=== PATIENT | female | born 1985 | race African-American/Black ===

== ENCOUNTER 2020-03-09 18:40 | Emergency (ER) | payer OTHER, SELFPAY ==
[2020-03-09 19:48] VITALS: BP 149/66; PULSE 103; RESP 14; TEMP 36.6; O2SAT 98
[2020-03-09 20:28] VITALS: BP 136/64; PULSE 106; RESP 16; TEMP 35.4; O2SAT 99; BMI 30.7
--- NOTE | 2020-03-09 21:00 | PC.NURSE ---
Pt ambulating from the waiting room into room 8 with a healy/steady gait. Pt reports lower pelvic pain mid lower back pain x 1 week. Pt reports dysuria and urinary frequency, denies discharge/chance of STIs. Pt denies N/V/D, reports poor PO intake, denies appetite but states she has been drinking fluids. Pt reports last UTI 14 years ago, denies history of kidney stones. IV established, labs and urine obtained and sent. Pt resting in bed awaiting primary MD navarro. Continue to monitor.
--- NOTE | 2020-03-09 21:07 | ED.FEMALEGU ---
HPI - Female Genitourinary General Chief complaint: Urogenital-Female Stated complaint: abdominal pain Time Seen by Provider: 03/09/20 21:07 Source: patient Mode of arrival: ambulatory Limitations: no limitations History of Present Illness HPI Narrative: patient having urinary discomfort for last 1 week complaining of bilateral flank pain for last 3 days nausea present no vomiting no abdominal pain no fever, chills+ Related Data Previous Rx's Medication Instructions Recorded ciprofloxacin HCl [Cipro] 500 mg PO BID #14 tab 03/09/20 phenazopyridine [Pyridium] 200 mg PO TID PRN #6 tab 03/09/20 Allergies Allergy/AdvReac Type Severity Reaction Status Date / Time cefazolin [From [facility]] Allergy Hives Verified 03/09/20 21:14 Review of Systems Review of Systems: Constitutional : No Weight loss, No Fever, +Chills ENT/Mouth : No sore throat, No Rhinorrhea Eyes: No Eye Pain, No Swelling Cardiovascular : No Chest Pain, no palpitations Respiratory : No Cough, No Sputum, no shortness of breath Gastrointestinal : ++ Nausea, No Vomiting, No Diarrhea, No abdominal Pain, no black stools Genitourinary : + Dysuria,+ Urinary Frequency Musculoskeletal : No joint pain, No Myalgias, No Joint Swelling Skin : No Skin Lesions, No rash Neuro : No Weakness, No Numbness, No Dizziness, No Headache Psych : No Anxiety/Panic, No Depression Heme/Lymph: No Bruising, No Lymphadenopathy Endocrine : No Polyuria, No Polydipsia All other systems reviewed and are negative [facility] Past Medical History Medical History (Updated 03/09/20 @ 22:14 by Jacob Novak MD) Anemia Social History Social History Advance Directives: No Advance Directives Information Provided: No Physical Exam Vital Signs: Vital Signs: Last Vital Signs Temp 98.4 F 03/09/20 22:37 Pulse 89 03/09/20 22:37 Resp 16 03/09/20 22:37 BP 119/64 03/09/20 22:37 Pulse Ox 99 03/09/20 20:28 Body Mass Index 30.7 Appearance: Alert. Oriented X3. No acute distress. Eyes: Pupils equal, round and reactive to light. ENT: Pharynx normal. Neck: Normal inspection. Neck supple. CVS: Normal heart rate and rhythm. Pulses normal. Respiratory: No respiratory distress. Breath sounds normal. Abdomen: Soft and nontender. Bowel sounds are present, no mass palpable, R CVA tenderness + Skin: Skin warm and dry. Normal skin color. Normal skin turgor. Extremities: No lower extremity edema. Neuro: Oriented X 3. No motor deficit. No sensory deficit. Course Course Course Narrative: PATIENT WITH MILD UTI HAD NAUSEA EARLIER BUT VOMITED IN THE ER AFTER TAKING THE MEDICATION. WILL GIVE HER IV ROCEPHIN ZOFRAN WAS ALSO GIVEN PATIENT FEELING BETTER NOW MDM - Female Genitourinary Lab Data Result diagrams: 03/09/20 20:59 03/09/20 20:59 Labs: Lab Results 03/09/20 03/09/20 03/09/20 Range/Units 20:59 20:59 20:59 WBC 10.5 (4.8-10.8) X10*3/uL RBC 4.34 (4.20-5.50) X10*6/uL Hgb 7.5 L (12.0-16.0) g/dl Hct 27.8 L (37-47) % MCV 64.1 L (80-98) fL MCH 17.3 L (27.0-33.0) pg MCHC 27.0 L (31.0-35.0) g/dl RDW 21.5 H (11.0-16.0) % Plt Count 345 (160-400) X10*3/uL MPV Not Reportable Immature Gran % (Auto) 0.3 (0.0-0.4) % Neut % (Auto) 86.4 H (45-73) % Lymph % (Auto) 6.4 L (20-40) % [place] % (Auto) 6.4 (2-11) % Eos % (Auto) 0.2 (0-4) % Baso % (Auto) 0.3 (0-2) % Lymph # (Auto) 0.7 L (1.2-4.9) X10*3/uL [place] # (Auto) 0.7 (0.1-1.2) X10*3/uL Eos # (Auto) 0.0 (0.0-0.4) X10*3/uL Baso # (Auto) 0.0 (0.0-0.2) X10*3/uL Abs Immat Gran (auto) 0.03 (0.00-0.03) X10*3/uL Absolute Neuts (auto) 9.1 H (2.0-8.3) X10*3/uL Absolute Nucleated RBC 0.000 (0.0-0.012) X10*3/uL Nucleated RBC % (auto) 0.0 (0.0-0.2) /100WBC Smear Tech's Comments VERIFIED Hold Blue Top SEE NOTE Sodium 138 (135-145) mmol/L Potassium 3.8 (3.3-5.1) mmol/l Chloride 105 (96-108) mmol/L Carbon Dioxide 21 L (22-29) mmol/L Anion Gap 16 (12-20) BUN 6 L (9-16) mg/dL Creatinine 0.76 (0.5-1.4) mg/dL Estim Creat Clear Calc 109.5 Estimated GFR > 60 Random Glucose 121 H (60-115) mg/dL Uric Acid 3.8 (2.4-5.7) mg/dL Calcium 8.8 (8.4-10.2) mg/dL Total Bilirubin 0.3 (0.0-1.0) mg/dL AST 17 (5-31) U/L ALT 13 (0-31) U/L Alkaline Phosphatase 81 (39-117) U/L Total Protein 8.0 (6.5-8.0) g/dL Albumin 4.6 (3.5-5.0) g/dL Urine Color Urine Appearance Urine pH (5.0-8.0) Ur Specific [place] (1.005-1.025) Urine Protein (NEG-TRACE) MG/DL Urine Glucose (UA) (NEG) MG/DL Urine Ketones (NEG) MG/DL Urine Blood (NEG) Urine Nitrite (NEG) Ur Leukocyte Esterase (NEG) Urine RBC (0) /HPF Urine WBC (0-4) /HPF Ur Squamous Epith Cells /LPF Urine Bacteria /LPF Urine Test (NEGATIVE) 03/09/20 Range/Units 20:59 WBC (4.8-10.8) X10*3/uL RBC (4.20-5.50) X10*6/uL Hgb (12.0-16.0) g/dl Hct (37-47) % MCV (80-98) fL MCH (27.0-33.0) pg MCHC (31.0-35.0) g/dl RDW (11.0-16.0) % Plt Count (160-400) X10*3/uL MPV Immature Gran % (Auto) (0.0-0.4) % Neut % (Auto) (45-73) % Lymph % (Auto) (20-40) % [place] % (Auto) (2-11) % Eos % (Auto) (0-4) % Baso % (Auto) (0-2) % Lymph # (Auto) (1.2-4.9) X10*3/uL [place] # (Auto) (0.1-1.2) X10*3/uL Eos # (Auto) (0.0-0.4) X10*3/uL Baso # (Auto) (0.0-0.2) X10*3/uL Abs Immat Gran (auto) (0.00-0.03) X10*3/uL Absolute Neuts (auto) (2.0-8.3) X10*3/uL Absolute Nucleated RBC (0.0-0.012) X10*3/uL Nucleated RBC % (auto) (0.0-0.2) /100WBC Smear Tech's Comments Hold Blue Top Sodium (135-145) mmol/L Potassium (3.3-5.1) mmol/l Chloride (96-108) mmol/L Carbon Dioxide (22-29) mmol/L Anion Gap (12-20) BUN (9-16) mg/dL Creatinine (0.5-1.4) mg/dL Estim Creat Clear Calc Estimated GFR Random Glucose (60-115) mg/dL Uric Acid (2.4-5.7) mg/dL Calcium (8.4-10.2) mg/dL Total Bilirubin (0.0-1.0) mg/dL AST (5-31) U/L ALT (0-31) U/L Alkaline Phosphatase (39-117) U/L Total Protein (6.5-8.0) g/dL Albumin (3.5-5.0) g/dL Urine Color YELLOW Urine Appearance CLOUDY Urine pH 5.5 (5.0-8.0) Ur Specific [place] 1.020 (1.005-1.025) Urine Protein 1+ H (NEG-TRACE) MG/DL Urine Glucose (UA) NEG (NEG) MG/DL Urine Ketones NEG (NEG) MG/DL Urine Blood 1+ H (NEG) Urine Nitrite NEG (NEG) Ur Leukocyte Esterase 3+ H (NEG) Urine RBC 1-4 (0) /HPF Urine WBC 30-49 H (0-4) /HPF Ur Squamous Epith Cells 2+ /LPF Urine Bacteria 3+ /LPF Urine Test NEGATIVE (NEGATIVE) Discharge Plan Discharge Clinical Impression: Urinary tract infection Patient Disposition: Home, Self-Care Instructions: Urinary Tract Infection in Women (ED) Additional Instructions: DRINK PLENTY OF FLUIDS TAKE ANTIBIOTIC PRESCRIBED. REPORT TO THE ER/PCP INCREASED VOMITING/FEVER/ABDOMINAL PAIN Prescriptions: New ciprofloxacin HCl [Cipro] 500 mg tablet 500 mg PO BID Qty: 14 RF: 0 phenazopyridine [Pyridium] 200 mg tablet 200 mg PO TID PRN (Reason: pain) Qty: 6 RF: 0 Interventions: ED Discharge Assessment Last Done: 03/09/20 22:52 Discharge Date/Time: 03/09/20 22:53
[2020-03-09 21:14] LABS: Glucose Urine UA NEG (NEG); Leukocyte Esterase Urine 3+ (NEG); Nitrite Urine NEG (NEG); PH 5.5 (5.0-8.0); Urine Blood 1+ (NEG); Urine Ketones NEG (NEG); Urine Protein 1+ MG/DL (NEG-TRACE)
--- NOTE | 2020-03-09 21:15 | PC.NURSE ---
at bedside for primary eval.
[2020-03-09 21:16] LABS: Appearance Urine CLOUDY; Color Urine YELLOW; Eosinophils Percent Auto 0.2 % (0-4); Hemoglobin 7.5 g/dl (12.0-16.0); Imm Gran Abs Auto 0.03 X10*3/uL (0.00-0.03); Imm Gran Pct Auto 0.3 % (0.0-0.4); MANUAL DIFF FLAG SCAN; Mean Corpuscular Hemoglobin 17.3 pg (27.0-33.0); Red Blood Count 4.34 X10*6/uL (4.20-5.50); SCAN SMEAR FLAG 1
[2020-03-09 21:17] LABS: Basophils Percent Auto 0.3 % (0-2); Hematocrit 27.8 % (37-47); Lymphocytes Absolute Auto 0.7 X10*3/uL (1.2-4.9); Lymphocytes Percent Auto 6.4 % (20-40); Monocytes Absolute Auto 0.7 X10*3/uL (0.1-1.2); Monocytes Percent Auto 6.4 % (2-11); Neutrophils Absolute Auto 9.1 X10*3/uL (2.0-8.3); Neutrophils Percent Auto 86.4 % (45-73); Platelet Count 345 X10*3/uL (160-400); Red Cell Distribution Width 21.5 % (11.0-16.0); UPreg QC Valid YES; Urine Pregnancy NEGATIVE (NEGATIVE); White Blood Count 10.5 X10*3/uL (4.8-10.8)
[2020-03-09 21:27] LABS: Bacteria Urine 3+ /LPF; Squamous Epithelial Cell Urine 2+ /LPF; WBC Urine 30-49 /HPF (0-4)
[2020-03-09] MEDS: Phenazopyridine HCL 200 MG TABLET PO (21:31)
[2020-03-09] MEDS: Ibuprofen 600 MG TABLET PO (21:31)
[2020-03-09] MEDS: levoFLOXacin 500 MG TABLET PO (21:31)
--- NOTE | 2020-03-09 21:32 | PC.NURSE ---
Pt medicated per MAR. Awaiting lab results. Continue to monitor.
[2020-03-09 21:37] LABS: Mean Corpuscular Volume 64.1 fL (80-98); PLT ABN DIST 1
[2020-03-09 21:38] LABS: SLIDE REVIEW VERIFIED
[2020-03-09 21:41] LABS: Alanine Aminotransferase 13 U/L (0-31); Albumin Level 4.6 g/dL (3.5-5.0); Alkaline Phosphatase 81 U/L (39-117); Anion Gap 16 (12-20); Aspartate Amino Transferase 17 U/L (5-31); Bilirubin Total 0.3 mg/dL (0.0-1.0); Blood Urea Nitrogen 6 mg/dL (9-16); Calcium 8.8 mg/dL (8.4-10.2); Carbon Dioxide 21 mmol/L (22-29); Chloride 105 mmol/L (96-108); Creatinine Clr Calc Pharmacy 109.5; Estimated Glomerular Filt Rate > 60; Glucose Random 121 mg/dL (60-115); Potassium 3.8 mmol/l (3.3-5.1); Sodium 138 mmol/L (135-145)
--- NOTE | 2020-03-09 21:59 | PC.NURSE ---
Pt found sitting upright in bed holding an emesis bag. Pt reports 3 episodes of vomiting approx 10 minutes after administration of medications. Pt medicated with Zofran, denies nausea at present time. aware.
[2020-03-09] MEDS: cefTRIAXone sodium 1 GM in 0.9 % Sodium Chloride 50 ML IV (22:11)
--- NOTE | 2020-03-09 22:12 | PC.NURSE ---
IV ABX hung per MAY.
[2020-03-09 22:24] LABS: Uric Acid 3.8 mg/dL (2.4-5.7)
[2020-03-09 22:37] VITALS: BP 119/64; PULSE 89; RESP 16; TEMP 36.9
== END 2020-03-09 22:53 | disposition home or self-care (01) ==
PROVIDERS: Emergency Provider Internal Medicine
DX: N39.0 Urinary tract infection, site not specified (principal); R30.0 Dysuria; Z79.899 Other long term (current) drug therapy
CPT/HCPCS: 36415; 80053; 81001; 81025; 84550; 85025; 87086; 87088; 87186; 96365; 99284; J0696

== ENCOUNTER 2020-03-18 12:24 | Outpatient (REF) | payer OTHER, SELFPAY | END 2020-03-18 12:25 | disposition home or self-care (01) | LOC: HO.LAB 12:24 | PROVIDERS: Visit Provider Internal Medicine | DX: Z20.822 Contact with and (suspected) exposure to COVID-19 (principal) | CPT/HCPCS: 36415; C9803; U0003 ==

== ENCOUNTER → 2022-03-20 13:44 | Outpatient (BNVA) | payer OTHER, SELFPAY | PROVIDERS: Visit Provider Physician Assistant Medical | DX: S61.231A Puncture wound without foreign body of left index finger without damage to nail, initial encounter (principal); W31.89XA Contact with other specified machinery, initial encounter | CPT/HCPCS: 73140; 99203 ==

== ENCOUNTER 2022-05-22 15:55 | Emergency (ER) | payer MEDICAID, SELFPAY ==
--- NOTE | 2022-05-22 16:06 | ED.GENADULT ---
HPI - General Adult General Chief complaint: Ear Problems <CLEMENCIA Lorenzo Last Filed: 05/22/22 16:08> Stated complaint: Earache <CLEMENCIA Lorenzo Last Filed: 05/22/22 16:08> Time Seen by Provider: 05/22/22 17:46 <CLEMENCIA Lorenzo Last Filed: 05/22/22 16:08> Source: patient <CLEMENCIA Aguila Last Filed: 05/22/22 18:00> Mode of arrival: ambulatory <CLEMENCIA Aguila Last Filed: 05/22/22 18:00> Limitations: no limitations <CLEMENCIA Aguila Last Filed: 05/22/22 18:00> History of Present Illness HPI narrative: 36-year-old female presenting to the ER with complaints of right ear pain that is radiating to her throat with generalized fatigue/malaise for the past 3 days. She denies any fevers, chills, dizziness, headaches, neck pain/stiffness, trouble swallowing or breathing, chest pain or shortness of breath, dyspnea on exertion, orthopnea palpitations paresthesias, rashes, recent falls or trauma, recent travel, recent swimming, decreased hearing, drainage from the ear, nausea/vomiting/diarrhea or any other symptoms complaints or concerns at this time. <CLEMENCIA Aguila Last Filed: 05/22/22 18:00> MD complaint: Right ear pain radiating to throat <CLEMENCIA Aguila Last Filed: 05/22/22 18:00> Onset (ago): day(s) (3) <CLEMENCIA Aguila Last Filed: 05/22/22 18:00> Related Data Home medications: Previous Rx's Medication Instructions Recorded ciprofloxacin HCl 500 mg tablet 500 mg PO BID #14 tabs 03/09/20 (Cipro) phenazopyridine 200 mg tablet 200 mg PO TID PRN pain 6 doses #6 03/09/20 (Pyridium) tabs metaxalone 800 mg tablet 800 mg PO TID PRN muscle pain #20 05/22/22 tabs naproxen 500 mg tablet 500 mg PO BID PRN pain #14 tabs 05/22/22 <CLEMENCIA Lorenzo Filed: 05/22/22 16:08> Allergies/adverse reactions: Allergies Allergy/AdvReac Type Severity Reaction Status Date / Time cefazolin [From [facility]] Allergy Hives Verified 03/09/20 21:14 <CLEMENCIA Lorenzo Last Filed: 05/22/22 16:08> Review of Systems Review of Systems: Constitutional : No Weight loss, No Fever, No Chills, No Night Sweats, + Fatigue, + Malaise ENT/Mouth : No Hearing loss, + Ear Pain, No Nasal Congestion, No Sinus Pain, No Hoarseness, + sore throat, No Rhinorrhea, No Swallowing Difficulty Eyes: No Eye Pain, No Swelling, No Redness, No Foreign Body, No Discharge, No Vision Changes Cardiovascular : No Chest Pain, No SOB, No Dyspnea on Exertion, No Orthopnea, No Edema, No Palpitations Respiratory : No Cough, No Sputum, No Wheezing, No Smoke Exposure, No Dyspnea Gastrointestinal : No Nausea, No Vomiting, No Diarrhea, No Constipation, No abdominal Pain, No Hematochezia, No Melena Genitourinary : no irregular bleeding, No Dysuria, No Urinary Frequency, No Hematuria, No Urinary Incontinence, No Urgency, No Flank Pain, No Urinary Flow Changes, No Hesitancy Musculoskeletal : No joint pain, No Myalgias, No Joint Swelling Skin : No Skin Lesions, No rash Neuro : No Weakness, No Numbness, No Paresthesias, No Loss of Consciousness, No Dizziness, No Headache Psych : No Anxiety/Panic, No Depression, No SI/HI/AH/VH, No Social Issues, Heme/Lymph: No Bruising, No Bleeding,No Lymphadenopathy Endocrine : No Polyuria, No Polydipsia, No Temperature Intolerance <CLEMENCIA Aguila Last Filed: 05/22/22 18:00> Yes all other systems are reviewed and are negative <CLEMENCIA Aguila Last Filed: 05/22/22 18:00> [facility] Past Medical History Attestation statement: The following information was validated with the patient. <CLEMENCIA Aguila Last Filed: 05/22/22 18:00> Source: old records reviewed and nursing notes reviewed <CLEMENCIA Aguila Last Filed: 05/22/22 18:00> Medical History: Medical History Anemia <CLEMENCIA Loernzo - Last Filed: 05/22/22 16:08> Social History Social History: Social History Advance Directives: No Advance Directives Information Provided: No <CLEMENCIA Lorenzo - Last Filed: 05/22/22 16:08> Physical Exam ED Vital Signs: Vital Signs - 24 hr 05/22/22 16:07 Temperature 98 F Pulse Rate 60 Respiratory Rate 16 Blood Pressure 129/75 Pulse Oximetry 98 Oxygen Delivery Method Room Air BMI result Body Mass Index 27.4 <CLEMENCIA Lorenzo - Last Filed: 05/22/22 16:08> Vital Signs - 24 hr 05/22/22 16:07 Temperature 98 F Pulse Rate 60 Respiratory Rate 16 Blood Pressure 129/75 Pulse Oximetry 98 Oxygen Delivery Method Room Air BMI result Body Mass Index 27.4 vital signs have been reviewed as normal and appeared to be correct. Blood pressure normal. Heart rate normal. Respiration rate normal. Temperature normal. Oxygen saturation normal. <CLEMENCIA Aguila - Last Filed: 05/22/22 18:00> Appearance: Alert. Oriented X3. No acute distress. Head: Normal external exam. Normocephalic. Atraumatic. Eyes: PERRLA. EOMI. Conjunctiva and sclera normal. Eyelids normal. ENT: EAC normal. TM's Normal. Pharynx normal. Uvula midline. Moist mucous membranes. No lesions/ulcerations or masses noted on the tongue. Normal voice. No trismus noted. No drooling noted. No muffled voice noted. Patient with tenderness palpation over the right TMJ no obvious crepitus or clicking is noted. Although she is noted to have teeth that appear to be grinding. Neck: Normal inspection. Neck supple. FROM. No adenopathy. Thyroid Normal. No tracheal deviation noted. No crepitus is noted. No meningeal signs. No neck mass noted. No signs of trauma noted. CVS: Normal heart rate and rhythm. Heart sound normal. Pulses normal throughout. No murmurs/rales/gallops. Respiratory: No respiratory distress. Painless inspiration. Breath sounds normal. No wheezes/rales/rhonchi noted. Chest nontender. No crepitus is noted. No signs of trauma noted. No accessory muscle usage noted or decreased air movement noted. No signs of trauma. Abdomen: Soft and nontender. Bowel sounds normal in all 4 quadrants. No distention noted. No organomegaly noted. No visible injury noted. Back: Full range of motion noted. Nontender. Skin: Skin warm and dry. Normal skin color. Normal skin turgor. No rashes/lesions/lacerations noted. Extremities: Extremities exhibit normal range of motion and nontender. Neuro: Oriented X 3. No motor deficit. No sensory deficit. Reflexes normal. Normal steady gait. No focal neuro deficits noted. CN's II-XII intact bilaterally? Vascular: + radial pulses. Normal cap refill. No cyanosis noted to upper extremity nails. <CLEMENCIA Aguila - Last Filed: 05/22/22 18:00> Course Course Course Narrative: This is an RME: Additional HPI, ROS, PE not included below will be deferred to primary provider. This is a 36-year-old female no significant medical history presenting with right ear pain, sore throat, fatigue malaise x3 days. No associated chest pain, shortness of breath, fevers, chills, nausea, vomiting. Physical examination benign. Normal ears bilaterally. No pain with manipulation externally. No mastoid tenderness. Normal throat. No signs of abscess. Uvula midline. Speaking in full sentences controlling secretions well. Likely viral. Viral testing ordered. Will also order strep test <CLEMENCIA Lorenzo - Last Filed: 05/22/22 16:08> Reevaluation(s) Reevaluation #1: Patient with right-sided TMJ syndrome. She was negative for COVID and rapid strep and flu. I considered mastoiditis, epidural abscess, malig OE, meningitis, and other infxs but the hx, exam& data did not support the diagnoses. The pt/family was advised that some diseases present atypically & the pt was given explicit DC instructions <CLEMENCIA Aguila - Last Filed: 05/22/22 18:00> Medical Decision Making Lab Data MDM Lab Attestation statement: I reviewed the patient's lab results. <CLEMENCIA Aguila Last Filed: 05/22/22 18:00> Labs: Lab Results 05/22/22 05/22/22 05/22/22 Range/Units 17:06 17:06 17:06 COVID-19 (BARAK) Negative (Negative) COVID-19 Clin Com See Note Influenza Type A (MONIQUE) Negative (Negative) Influenza Type B (MONIQUE) Negative (Negative) Influenza A & B Note See Note S. pyogenes GrpA MONIQUE Negative (Negative) <CLEMENCIA Lorenzo Last Filed: 05/22/22 16:08> Lab Results 05/22/22 05/22/22 05/22/22 Range/Units 17:06 17:06 17:06 COVID-19 (BARAK) Negative (Negative) COVID-19 Clin Com See Note Influenza Type A (MONIQUE) Negative (Negative) Influenza Type B (MONIQUE) Negative (Negative) Influenza A & B Note See Note S. pyogenes GrpA MONIQUE Negative (Negative) <CLEMENCIA Aguila Last Filed: 05/22/22 18:00> Prescription Management Will DC home with muscle relaxants and naproxen for TMJ syndrome. <CLEMENCIA Aguila Last Filed: 05/22/22 18:00> Discharge Plan Discharge Clinical Impression: Right-sided temporomandibular joint pain-dysfunction syndrome <CLEMENCIA Lorenzo Last Filed: 05/22/22 16:08> Patient Disposition: Home, Self-Care <CLEMENCIA Lorenzo Last Filed: 05/22/22 16:08> Instructions: Temporomandibular Disorder (ED) <CLEMENCIA Lorenzo Last Filed: 05/22/22 16:08> Prescriptions: New metaxalone 800 mg tablet 800 mg PO TID PRN (Reason: muscle pain) Qty: 20 0RF naproxen 500 mg tablet 500 mg PO BID PRN (Reason: pain) Qty: 14 0RF No Action ciprofloxacin HCl [Cipro] 500 mg tablet 500 mg PO BID Qty: 14 0RF phenazopyridine [Pyridium] 200 mg tablet 200 mg PO TID PRN (Reason: pain) Qty: 6 0RF <CLEMENCIA Lorenzo Last Filed: 05/22/22 16:08> Referrals: Physician,None [Primary Care Provider] - (your pcp as needed) <CLEMENCIA Lorenzo - Last Filed: 05/22/22 16:08>
[2022-05-22 16:07] VITALS: BP 129/75; PULSE 60; RESP 16; TEMP 36.6; O2SAT 98; BMI 27.4
[2022-05-22 17:21] LABS: IDNOW Serial# 08D9AD1C; Strep A Nucleic Acid Negative (Negative)
[2022-05-22 17:29] LABS: COVID-19 Test Negative (Negative); IDNOW Serial# 9DB6401D; IDNOW Serial# BCCEAD1C; Influenza A Negative (Negative); Influenza B2 Negative (Negative)
== END 2022-05-22 18:05 | disposition home or self-care (01) ==
PROVIDERS: Physician Assistant; Emergency Provider Emergency Medicine
DX: M26.621 Arthralgia of right temporomandibular joint (principal); H92.01 Otalgia, right ear; J02.8 Acute pharyngitis due to other specified organisms; Z20.822 Contact with and (suspected) exposure to COVID-19; Z20.828 Contact with and (suspected) exposure to other viral communicable diseases
CPT/HCPCS: 87502; 87635; 87651; 99282; 99283

== ENCOUNTER 2023-07-11 20:15 | Emergency (ER) | payer MEDICAID, SELFPAY | END 2023-07-11 22:00 | disposition left against medical advice (07) | PROVIDERS: Emergency Provider Emergency Medicine | DX: Z53.21 Procedure and treatment not carried out due to patient leaving prior to being seen by health care provider (principal); F41.9 Anxiety disorder, unspecified ==

== ENCOUNTER 2023-12-07 09:10 | Emergency (ER) | payer MEDICAID, SELFPAY ==
--- NOTE | ~2023-12-07 | CT_ITS ---
EXAMINATION: CT HEAD WITHOUT CONTRAST CLINICAL INFORMATION: Headache with radiation. COMPARISON: No relevant prior imaging. TECHNIQUE: Contiguous axial imaging was performed from the skull base to vertex without intravenous administration of contrast. This CT examination was performed using dose optimization techniques as appropriate, variously including the following: *Automated exposure control *Adjustment of mA and/or kV according to patient size (this includes techniques or standardized protocols for targeted exams where dose is matched to indication/reason for exam; i.e. extremities or head) *Use of iterative reconstruction technique DLP: 577 mGy-cm FINDINGS: There is no acute intracranial hemorrhage or abnormal extra-axial collection. No intracranial mass effect or midline shift. Lateral and third ventricles are normal. No hydrocephalus. Burger-white matter differentiation is grossly preserved and there is no evidence of acute territorial infarct. The calvarium and skull base are intact. Mastoid air cells and middle ear cavities are well aerated. No active paranasal sinus disease. CT/CT head/brain wo IV con IMPRESSION: Normal CT scan of the head. No evidence of acute territorial infarct or hemorrhage. No intracranial mass effect or hydrocephalus. Electronically signed by: Parrish Queen MD 12/07/2023 11:25 AM EDT
[2023-12-07 09:13] VITALS: BP 106/33; PULSE 77; RESP 18; TEMP 36.3; O2SAT 100; BMI 29.2
--- NOTE | 2023-12-07 11:06 | ED.GENADULT ---
HPI - General Adult General Chief complaint: Headache Stated complaint: headache pain going down R side Time Seen by Provider: 12/07/23 11:05 Source: patient Mode of arrival: ambulatory Limitations: no limitations History of Present Illness ED Provider: Iveth Schultz PA-C HPI narrative: Patient is a 38 year old assigned female at with no reported medical history presenting to the emergency department today with a right sided headache. Patient states that over the last 2 days she has had a right sided headache that starts behind her right eye and radiates into her ear. Patient states that she has some nausea with it. Patient denies any dizziness, lightheadedness, abdominal pain, vomiting, fever, chills, blurry vision, double vision, loss of vision, chest pain, difficulty breathing, shortness of breath, back pain, night sweats, pain with urination, increased urinary frequency, increased urinary urgency, blood in her urine or stool, syncope or a near syncopal episode, recent trauma or falls, bowel incontinence, bladder incontinence, or any other complaints at this time. Onset (ago): day(s) (2) Location: head Relieving factors: none Exacerbating factors: none Associated symptoms: nausea/vomiting Treatments prior to arrival: none Related Data Previous Rx's ?Medication ?Instructions ?Recorded ciprofloxacin HCl 500 mg tablet 500 mg PO BID #14 tabs 03/09/20 (Cipro) phenazopyridine 200 mg tablet 200 mg PO TID PRN pain 6 doses #6 03/09/20 (Pyridium) tabs metaxalone 800 mg tablet 800 mg PO TID PRN muscle pain #20 05/22/22 tabs naproxen 500 mg tablet 500 mg PO BID PRN pain #14 tabs 05/22/22 Allergies Allergy/AdvReac Type Severity Reaction Status Date / Time cefazolin [From [facility]] Allergy Hives Verified 12/07/23 09:15 Review of Systems Constitutional: Constitutional: Reports no additional constitutional complaints, Denies chills, Denies fever(s), Reports headache(s) and Denies night sweats Eyes: Eyes: Reports no additional eye complaints, Denies blurry vision, Denies change in vision, Denies diplopia, Denies eye discharge, Denies loss of vision and Denies eye pain ENT: Denies dizziness and Reports headache(s) Cardiovascular: Cardiovascular: Reports no additional cardiovascular complaints, Denies chest pain, Denies lightheadedness, Denies Loss of Consciousness and Denies dyspnea Respiratory: Respiratory: Reports no additional respiratory complaints and Denies dyspnea Gastrointestinal: Gastrointestinal: Reports no additional gastrointestinal complaints, Denies abdominal pain, Denies melena, Denies hematochezia, Denies change in bowel habits, Denies change in stool character, Reports nausea and Denies vomiting Genitourinary: Genitourinary: Denies hematuria, Denies urinary frequency, Denies dysuria, Denies urinary incontinence, Denies urinary hesitancy and Denies urinary urgency Musculoskeletal: Musculoskeletal: Reports no additional musculoskeletal complaints, Denies numbness and Denies tingling Neurologic: Denies dizziness, Reports headache(s), Denies loss of vision, Denies numbness and Denies tingling Psychiatric: Psychiatric: Reports no additional psychiatric complaints Endocrine: Endocrine: Reports no additional endocrine complaints Hematologic/Lymphatic: Hematologic/Lymphatic: Reports no additional hematologic/lymphatic complaints Allergic/Immunologic: Allergic/Immunologic: Reports no additional allergic/immunologic complaints PMFSH Past Medical History Attestation statement: The following information was validated with the patient. Source: old records reviewed and nursing notes reviewed Medical History Anemia Social History Social History Advance Directives: No Advance Directives Information Provided: Yes Do you have a plan to hurt others: No Plan Patient : No Physical Exam ED Vital Signs: Vital Signs - 24 hr 12/07/23 09:13 12/07/23 12:17 12/07/23 13:29 Temperature 97.4 F 98.5 F 98.5 F Pulse Rate 77 58 58 Respiratory Rate 18 16 18 Blood Pressure 106/33 L 117/60 117/60 Pulse Oximetry 100 100 100 Oxygen Delivery Method Room Air Room Air BMI result Body Mass Index 29.2 Const General: cooperative, no acute distress, alert and awake Nutritional Appearance: well nourished Orientation/consciousness: patient oriented x3 Limitations: no limitations HENMT Head: Yes normal to inspection and Yes atraumatic Ears: hearing grossly normal bilaterally and external ears normal General nose exam: Normal external nose present, no nasal discharge noted and no epistaxis Face and sinus: Yes normal facial exam, No abrasion and No laceration Mouth: Normal oral and palatal mucosa present, no drooling and no muffled voice Eyes General: appearance normal, both eyes and all related structures Periorbital: periorbital findings normal Eyelids: Yes eyelids normal Conjunctivae: conjunctivae normal Pupils: Equal, round and reactive pupils present EOM: EOMs intact bilaterally Neck Neck: Yes normal visual inspection, Yes full ROM and Yes no lymphadenopathy Chest Chest palpation & inspection: normal inspection of the chest Resp Effort & Inspection: normal respiratory effort and able to speak in complete sentences GI Inspection: Yes normal to inspection Neuro General: patient oriented x3 and moves all extremities Cranial nerves: Yes Equal, round and reactive pupils present Cognition (Neuro): normal cognition Extrem General: Yes normal to inspection, Yes full ROM and Yes capillary refill normal Psych Appearance: grossly normal Mental Status: mental status grossly normal Affect: normal affect Attitude: cooperative Thought process: Normal thought process present Thought content: Normal thought content present Insight: Good insight present (Psych) Medications Administered Discontinued Medications Generic Name Dose Route Start Last Admin Trade Name Ailyn PRN Reason Stop Dose Admin Ketorolac Tromethamine 15 mg 12/07/23 11:09 12/07/23 11:32 Ketorolac Tromethamine 15 Mg/Ml Vial IVPUSH 12/07/23 11:10 15 mg ONCE ONE Administration Medical Decision Making Medical Decision Making [facility] Narrative: Patient is a 38 year old assigned female at with no reported medical history presenting to the emergency department today with a right sided headache. Patient's physical exam was unremarkable. Patient's blood work was unremarkable. Patient's urine showed no acute process. Patient's head CT showed no acute process. I explained my physical exam findings as well as all test results to the patient. I answered all questions asked by the patient. Patient received IV Toradol which upon re-evaluation she stated it helped her symptoms significantly. Patient's clinical presentation is most consistent with a migraine headache. I stressed the importance of the patient taking her medication as directed (either prescribed or as the over the counter packaging recommends). I stressed the importance of the patient following up with her primary care provider and a neurologist. I stressed the importance of the patient returning to the emergency department immediately if her symptoms were to worsen or if she were to develop any dizziness, shortness of breath, difficulty breathing, chest pain, blurry vision, loss of vision, nausea, vomiting, abdominal pain, fever, chills, back pain, or any other complaints. Patient verbalized agreement and understanding with this treatment plan and discharge. Differential Diagnosis Differential Diagnoses: The differential diagnosis associated with the presentation includes Migraine headache Headache Migraine Admission/Observation Consideration of admission/observation: Escalation of care including admission/observation considered Patient would have been admitted to the hospital had her work up had any findings where hospital admission was appropriate and her clinical presentation warranted hospital admission. Lab Data [facility] Lab Attestation statement: I reviewed the patient's lab results. My interpretation of these results are in the [facility] Rationale portion of this note. 12/07/23 11:29 12/07/23 11:29 Labs: Lab Results 12/07/23 12/07/23 Range/Units 11:26 11:29 WBC 9.7 (4.8-10.8) X10*3/uL RBC 4.35 (4.20-5.50) X10*6/uL Hgb 8.1 L (12.0-16.0) g/dl Hct 28.8 L (37.0-47.0) % MCV 66.2 L (80.0-98.0) fL MCH 18.6 L (27.0-33.0) pg MCHC 28.1 L (31.0-35.0) g/dl RDW 20.3 H (11.0-16.0) % Plt Count 440 H (160-400) X10*3/uL MPV 9.8 (9.4-12.3) fL Immature Gran % (Auto) 0.3 (0.0-0.4) % Neut % (Auto) 73.0 (45-73) % Lymph % (Auto) 21.2 (20-40) % [place] % (Auto) 4.6 (2-11) % Eos % (Auto) 0.7 (0-4) % Baso % (Auto) 0.2 (0-2) % Lymph # (Auto) 2.1 (1.2-4.9) X10*3/uL [place] # (Auto) 0.5 (0.1-1.2) X10*3/uL Eos # (Auto) 0.1 (0.0-0.4) X10*3/uL Baso # (Auto) 0.0 (0.0-0.2) X10*3/uL Abs Immat Gran (auto) 0.03 (0.00-0.03) X10*3/uL Absolute Neuts (auto) 7.1 (2.0-8.3) x10*3/uL Absolute Nucleated RBC 0.000 (0.0-0.012) X10*3/uL Nucleated RBC % (auto) 0.0 (0.0-0.2) /100WBC Sodium 141 (135-145) mmol/L Potassium 4.1 (3.3-5.1) mmol/L Chloride 111 H (96-108) mmol/L Carbon Dioxide 24 (22-29) mmol/L Anion Gap 10 L (12-20) BUN 10 (9-16) mg/dL Creatinine 0.81 (0.5-1.4) mg/dL Estim Creat Clear Calc 96.5 Estimated GFR > 60 Random Glucose 93 (60-115) mg/dL Calcium 9.4 D (8.4-10.2) mg/dL Magnesium 2.3 (1.6-2.6) mg/dL Total Bilirubin 0.3 (0.0-1.0) mg/dL AST 16 (5-31) U/L ALT 15 (0-31) U/L Alkaline Phosphatase 95 (39-117) U/L Total Protein 7.5 (6.5-8.0) g/dL Albumin 4.5 (3.5-5.0) g/dL Influenza Type A (PCR) NEGATIVE (Negative) Influenza Type B (PCR) NEGATIVE (Negative) RSV RNA Qual (PCR) NEGATIVE (Negative) SARS-CoV-2 RNA (RT-PCR) NEGATIVE (Negative) Independent Interpretation I performed an independent interpretation of an: CT Scan Interpretation: My interpretation is in agreement with the radiologist's impression of this imaging study. EXAMINATION: CT HEAD WITHOUT CONTRAST CLINICAL INFORMATION: Headache with radiation. COMPARISON: No relevant prior imaging. TECHNIQUE: Contiguous axial imaging was performed from the skull base to vertex without intravenous administration of contrast. This CT examination was performed using dose optimization techniques as appropriate, variously including the following: *Automated exposure control *Adjustment of mA and/or kV according to patient size (this includes techniques or standardized protocols for targeted exams where dose is matched to indication/reason for exam; i.e. extremities or head) *Use of iterative reconstruction technique DLP: 577 mGy-cm FINDINGS: There is no acute intracranial hemorrhage or abnormal extra-axial collection. No intracranial mass effect or midline shift. Lateral and third ventricles are normal. No hydrocephalus. Burger-white matter differentiation is grossly preserved and there is no evidence of acute territorial infarct. The calvarium and skull base are intact. Mastoid air cells and middle ear cavities are well aerated. No active paranasal sinus disease. CT/CT head/brain wo IV con IMPRESSION: Normal CT scan of the head. No evidence of acute territorial infarct or hemorrhage. No intracranial mass effect or hydrocephalus. Electronically signed by: Parrish Queen MD 12/07/2023 11:25 AM EDT RP Dictated By: Parrish Queen MD Signed By: Electronically signed by Parrish Queen MD 12/07/23 1125 Radiology Impression Discussion of test interpretation with radiology: I have reviewed the radiologist's reading. Discharge Plan Discharge Clinical Impression: Migraine Patient Disposition: Home, Self-Care Instructions: Migraine Headache (ED) Additional Instructions: Follow up with your primary care provider and a neurologist. Return to the emergency department immediately if your symptoms worsen or if you develop any dizziness, shortness of breath, difficulty breathing, chest pain, blurry vision, loss of vision, nausea, vomiting, abdominal pain, fever, chills, back pain, or any other complaints. Prescriptions: No Action ciprofloxacin HCl [Cipro] 500 mg tablet 500 mg PO BID Qty: 14 0RF phenazopyridine [Pyridium] 200 mg tablet 200 mg PO TID PRN (Reason: pain) Qty: 6 0RF metaxalone 800 mg tablet 800 mg PO TID PRN (Reason: muscle pain) Qty: 20 0RF naproxen 500 mg tablet 500 mg PO BID PRN (Reason: pain) Qty: 14 0RF [place] [facility] [place] (Call to establish and follow up with a primary care provider. If you already have a primary care provider, please follow up with them.) [facility] [place] [facility] [facility]Provider Group] (Call to establish and follow up with a primary care provider. If you already have a primary care provider, please follow up with them.) [facility] [place]] (Call to establish and follow up with a primary care provider. If you already have a primary care provider, please follow up with them.) [facility] [place]] (Call to establish and follow up with a neurologist. ) Interventions: ED Discharge Assessment Last Done: 12/07/23 13:29 Discharge Date/Time: 12/07/23 13:29 Print Language: Macedonian
[2023-12-07] MEDS: Ketorolac Tromethamine 15 MG/ML VIAL IVPUSH (11:32)
[2023-12-07 11:33] LABS: MANUAL DIFF FLAG NO
[2023-12-07 11:35] LABS: Basophils Percent Auto 0.2 % (0-2); Eosinophils Absolute Auto 0.1 X10*3/uL (0.0-0.4); Eosinophils Percent Auto 0.7 % (0-4); Hematocrit 28.8 % (37.0-47.0); Hemoglobin 8.1 g/dl (12.0-16.0); Imm Gran Abs Auto 0.03 X10*3/uL (0.00-0.03); Imm Gran Pct Auto 0.3 % (0.0-0.4); Lymphocytes Absolute Auto 2.1 X10*3/uL (1.2-4.9); Lymphocytes Percent Auto 21.2 % (20-40); Mean Corpuscular HGB Conc 28.1 g/dl (31.0-35.0); Mean Corpuscular Hemoglobin 18.6 pg (27.0-33.0); Mean Corpuscular Volume 66.2 fL (80.0-98.0); Mean Platelet Volume 9.8 fL (9.4-12.3); Monocytes Absolute Auto 0.5 X10*3/uL (0.1-1.2); Monocytes Percent Auto 4.6 % (2-11); Neutrophils Absolute Auto 7.1 x10*3/uL (2.0-8.3); Platelet Count 440 X10*3/uL (160-400); Red Blood Count 4.35 X10*6/uL (4.20-5.50); Red Cell Distribution Width 20.3 % (11.0-16.0); White Blood Count 9.7 X10*3/uL (4.8-10.8)
[2023-12-07 12:17] VITALS: BP 117/60; PULSE 58; RESP 16; TEMP 36.9; O2SAT 100
[2023-12-07 12:18] LABS: Alanine Aminotransferase 15 U/L (0-31); Albumin Level 4.5 g/dL (3.5-5.0); Alkaline Phosphatase 95 U/L (39-117); Anion Gap 10 (12-20); Aspartate Amino Transferase 16 U/L (5-31); Bilirubin Total 0.3 mg/dL (0.0-1.0); Blood Urea Nitrogen 10 mg/dL (9-16); Calcium 9.4 mg/dL (8.4-10.2); Carbon Dioxide 24 mmol/L (22-29); Chloride 111 mmol/L (96-108); Creatinine Clr Calc Pharmacy 96.5; Estimated Glomerular Filt Rate > 60; Glucose Random 93 mg/dL (60-115); Magnesium 2.3 mg/dL (1.6-2.6); Potassium 4.1 mmol/L (3.3-5.1); Sodium 141 mmol/L (135-145); Total Protein 7.5 g/dL (6.5-8.0)
[2023-12-07 12:51] LABS: Influenza A PCR NEGATIVE (Negative); Influenza B PCR NEGATIVE (Negative); Resp Syncy Virus RNA Qual PCR NEGATIVE (Negative); SARS COV2 PCR INHOUSE NEGATIVE (Negative)
[2023-12-07 13:29] VITALS: BP 117/60; PULSE 58; RESP 18; TEMP 36.9; O2SAT 100
== END 2023-12-07 13:29 | disposition home or self-care (01) ==
PROVIDERS: Physician Assistant Medical; Emergency Provider Internal Medicine
DX: G43.909 Migraine, unspecified, not intractable, without status migrainosus (principal); R11.2 Nausea with vomiting, unspecified; D64.9 Anemia, unspecified; Z03.818 Encounter for observation for suspected exposure to other biological agents ruled out; Z79.899 Other long term (current) drug therapy
CPT/HCPCS: 0241U; 70450; 80053; 83735; 85025; 96374; 99284; J1885

== ENCOUNTER 2024-05-07 17:32 | Emergency (ER) | payer MEDICAID, SELFPAY ==
--- NOTE | ~2024-05-07 | XR_ITS ---
CLINICAL HISTORY: chest tightness 2 view chest x-ray Comparison: None Findings: No consolidation or effusion. Heart size is normal. No acute fracture. IMPRESSION: 1. No acute findings. This document has been electronically signed by: Cuco Purvis MD on 05/07/2024 19:42:03
[2024-05-07 18:38] VITALS: BP 120/38; PULSE 90; RESP 20; TEMP 37; O2SAT 100; BMI 29.2
--- NOTE | 2024-05-07 18:39 | ED_ITS ---
HPI - General Adult General Chief complaint: Anxiety Stated complaint: dizzy/panic attack Time Seen by Provider: 05/07/24 22:50 Source: patient and old records reviewed Mode of arrival: ambulatory Limitations: no limitations History of Present Illness ED Provider: ROLANDO BALDWIN narrative: 38 yo female with PMH of Fe deficiency anemia, anxiety, she has not been on medications for anxiety but was seeing a therapist in [place] prior to moving here. She notes she has had really bad anxiety without a trigger that did respond to advil PM last night but all day today the anxiety was bad. She is shaking has central chest tightness. She has never been on medications for this in the past. No SI/HI. Feels safe at home. She has not traveled recently had a procedure and does not take OCPs. [place] complaint: anxiety Onset (ago): day(s) (1) Location: chest Radiation: non-radiation Severity: moderate Pain Consistency: other Relieving factors: none Exacerbating factors: other Associated symptoms: other (anxiety, dyspnea) Treatments prior to arrival: none Related Data Previous Rx's ?Medication ?Instructions ?Recorded ciprofloxacin HCl 500 mg tablet 500 mg PO BID #14 tabs 03/09/20 (Cipro) phenazopyridine 200 mg tablet 200 mg PO TID PRN pain 6 doses #6 03/09/20 (Pyridium) tabs metaxalone 800 mg tablet 800 mg PO TID PRN muscle pain #20 05/22/22 tabs naproxen 500 mg tablet 500 mg PO BID PRN pain #14 tabs 05/22/22 Allergies Allergy/AdvReac Type Severity Reaction Status Date / Time cefazolin [From [facility]] Allergy Hives Verified 05/07/24 18:42 Review of Systems 2 Review of Systems: Constitutional : No Weight loss, No Fever, No Chills ENT/Mouth : No sore throat, No Rhinorrhea Eyes: No Eye Pain, No Swelling Cardiovascular : pos Chest Pain, no SOB, no Dyspnea on Exertion, No Orthopnea, No Edema, No Palpitations Respiratory : No Cough, No Sputum Gastrointestinal : no Nausea, No Vomiting, No Diarrhea, No abdominal Pain, No Hematochezia, No Melena Genitourinary : No Dysuria, No Urinary Frequency Musculoskeletal : No joint pain, No Myalgias, No Joint Swelling Skin : No Skin Lesions, No rash Neuro : No Weakness, No Numbness, No Dizziness, No Headache Psych : pos Anxiety/Panic, No Depression All other systems reviewed and are negative FOR[facility], [facility] Past Medical History Attestation statement: The following information was validated with the patient. Source: old records reviewed Medical History Anemia Social History Social History (Updated 05/07/24 @ 22:58 by Jessica Preciado DO) Patient Tobacco Use Status: Never used Tobacco Physical Exam ED Vital Signs: Vital Signs - 24 hr 05/07/24 18:38 05/07/24 20:05 05/07/24 22:46 Temperature 98.6 F 98.9 F 98.8 F Pulse Rate 90 70 79 Respiratory Rate 20 16 18 Blood Pressure 120/38 L 112/45 L 109/48 L Pulse Oximetry 100 100 100 Oxygen Delivery Method Room Air Room Air Room Air BMI result Body Mass Index 29.2 Appearance: Alert. Oriented X3. No acute distress. anxious appearing Eyes: Pupils equal, round and reactive to light. ENT: Pharynx normal. Neck: Normal inspection. Neck supple. CVS: Normal heart rate and rhythm. Pulses normal. Respiratory: No respiratory distress. Breath sounds normal. Abdomen: Soft and non-tender. Skin: Skin warm and dry. Normal skin color. Normal skin turgor. Extremities: No lower extremity edema. No calf ttp Neuro: Oriented X 3. No motor deficit. No sensory deficit. CN2-12 intact Course Course Course Narrative: This is an RME: Additional HPI, ROS, PE not included below will be deferred to primary provider. RME assessment and note performed by: Eliza Hernández PA-C 38-year-old female who presents emergency department with concerns for chest tightness and nervousness all day today. Hx of anxiety when she was in [place]- sxs feel similar. Admits to having some headaches and nausea. Plan: Labs, chest xray, ekg, further ER eval needed Medical Decision Making Medical Decision Making MDM Narrative: 38 yo female with PMH of anemia and anxiety here with c/o anxiety - her symptoms are atypical and her hemoglobin is at baseline. At this time I have low susp for ACS or VTE. She appears anxious. She has no infectious symptoms - will obtain basic labs, EKG, troponin x 1 and start on atarax. Differential Diagnosis Differential Diagnoses: The differential diagnosis associated with the presentation includes PERC negative doubt VTE atypical chest pain no risk factors for ACS no infectious symptoms reported. Admission/Observation Consideration of admission/observation: Escalation of care including admission/observation considered Lab Data MDM Lab Attestation statement: I reviewed the patient's lab results. 05/07/24 18:58 05/07/24 18:58 Labs: Lab Results 05/07/24 05/07/24 Range/Units 18:58 20:15 WBC 12.9 H (4.8-10.8) X10*3/uL RBC 4.43 (4.20-5.50) X10*6/uL Hgb 8.0 L (12.0-16.0) g/dl Hct 29.0 L (37.0-47.0) % MCV 65.5 L (80.0-98.0) fL MCH 18.1 L (27.0-33.0) pg MCHC 27.6 L (31.0-35.0) g/dl RDW 20.9 H (11.0-16.0) % Plt Count 411 H (160-400) X10*3/uL MPV 9.9 (9.4-12.3) fL Immature Gran % (Auto) 0.5 H (0.0-0.4) % Neut % (Auto) 76.6 H (45-73) % Lymph % (Auto) 18.3 L (20-40) % [place] % (Auto) 4.2 (2-11) % Eos % (Auto) 0.2 (0-4) % Baso % (Auto) 0.2 (0-2) % Lymph # (Auto) 2.4 (1.2-4.9) X10*3/uL [place] # (Auto) 0.5 (0.1-1.2) X10*3/uL Eos # (Auto) 0.0 (0.0-0.4) X10*3/uL Baso # (Auto) 0.0 (0.0-0.2) X10*3/uL Abs Immat Gran (auto) 0.06 H (0.00-0.03) X10*3/uL Absolute Neuts (auto) 9.9 H (2.0-8.3) x10*3/uL Absolute Nucleated RBC 0.000 (0.0-0.012) X10*3/uL Nucleated RBC % (auto) 0.0 (0.0-0.2) /100WBC Sodium 140 (135-145) mmol/L Potassium 3.7 (3.3-5.1) mmol/L Chloride 110 H (96-108) mmol/L Carbon Dioxide 21 L (22-29) mmol/L Anion Gap 13 (12-20) BUN 11 (9-16) mg/dL Creatinine 0.80 (0.5-1.4) mg/dL Estim Creat Clear Calc 97.8 Estimated GFR > 60 Random Glucose 97 (60-115) mg/dL Calcium 8.9 (8.4-10.2) mg/dL Magnesium 2.0 (1.6-2.6) mg/dL Total Bilirubin 0.4 (0.0-1.0) mg/dL Direct Bilirubin 0.1 (0.0-0.5) mg/dL AST 15 (5-31) U/L ALT 16 (0-31) U/L Alkaline Phosphatase 91 (39-117) U/L Troponin I High Sens < 2.7 (<3.5-17.0) ng/L Total Protein 8.0 (6.5-8.0) g/dL Albumin 4.5 (3.5-5.0) g/dL TSH 1.18 (0.32-4.0) uIU/mL Urine Color Yellow Urine Appearance Clear Urine pH 6.5 (5.0-9.0) Ur Specific [place] 1.020 (1.005-1.025) Urine Protein Negative (Neg-Trace) mg/dL Urine Glucose (UA) Negative (Negative) mg/dL Urine Ketones Negative (Negative) mg/dL Urine Blood Negative (Negative) Urine Nitrite Negative (Negative) Ur Leukocyte Esterase Negative (Negative) Urine RBC 0-2 (0-2) /HPF Urine WBC 0-5 (0-5) /HPF Ur Squamous Epith Cells 0-2 (0-2) /HPF Urine Bacteria None Seen (None Seen) Hyaline Casts 0-2 (0-2) /LPF Urine Opiates Screen Not Detected (Not Detect) Ur Buprenorphine Scrn Not Detected (Not Detect) ng/mL Ur Oxycodone Screen Not Detected (Not Detect) ng/mL Urine Methadone Screen Not Detected (Not Detect) ng/mL Urine Fentanyl Screen Not Detected (Not Detect) Ur Barbiturates Screen Not Detected (Not Detect) Ur Phencyclidine Scrn Not Detected (Not Detect) Ur Amphetamines Screen Not Detected (Not Detect) U Benzodiazepines Scrn Not Detected (Not Detect) Urine Cocaine Screen Not Detected (Not Detect) U Marijuana (THC) Screen POSITIVE H (Not Detect) Influenza Type A (PCR) NEGATIVE (Negative) Influenza Type B (PCR) NEGATIVE (Negative) RSV RNA Qual (PCR) NEGATIVE (Negative) SARS-CoV-2 RNA (RT-PCR) NEGATIVE (Negative) Independent Interpretation I performed an independent interpretation of an: EKG and Plain X-Ray (normal ) Interpretation: Rate: 66 Rhythm: NSR Randall: noraml Normal P waves. Normal CARRIE. Normal QRS complex. ST T wave : normal no BROOKE qTC: 406 prior studies: no acute ischemia The study has been interpreted contemporaneously by me. . Radiology Impression Discussion of test interpretation with radiology: I have reviewed the radiologist's reading. External Record Review External record reviewed: Outpatient record Prescription Management I considered prescription management with: Other Discharge Plan Discharge Clinical Impression: Acute anxiety Patient Disposition: Home, Self-Care Instructions: Anxiety (ED) Additional Instructions: hemoglobin at baseline 8, chest xray, ekg reassuring, other labs reassuring return for any worsening symptoms or concerns. You were seen in our Emergency Department today for treatment of a behavioral health issue. It is important after your visit that you follow up with either your behavioral health provider or a primary care doctor within 7 days.? If you have trouble finding a therapist you can reach out to [address] [phone] The National Suicide and Crisis Lifeline can be reached 7 days a week 24 hours a day.? Call 988 to speak with someone.? Return for any worsening symptoms or concerns such as thoughts of self harm or harm to others. Please call 911 if you feel your mental health is worsening.? Prescriptions: No Action ciprofloxacin HCl [Cipro] 500 mg tablet 500 mg PO BID Qty: 14 0RF phenazopyridine [Pyridium] 200 mg tablet 200 mg PO TID PRN (Reason: pain) Qty: 6 0RF metaxalone 800 mg tablet 800 mg PO TID PRN (Reason: muscle pain) Qty: 20 0RF naproxen 500 mg tablet 500 mg PO BID PRN (Reason: pain) Qty: 14 0RF Print Language: Kiswahili
--- NOTE | 2024-05-07 18:42 | ECG_ITS ---
Test Reason : chest tightness Blood Pressure : */* mmHG Vent. Rate : 66 BPM Atrial Rate : 66 BPM P-R Int : 142 ms QRS Dur : 70 ms QT Int : 388 ms P-R-T Axes : 51 24 25 degrees QTcB Int : 406 ms Normal sinus rhythm Cannot rule out Anterior infarct , age undetermined Abnormal ECG No previous ECGs available Referred By: Eliza Hernández Electronically Signed By: YAMINI RITCHEI MD
[2024-05-07 19:14] LABS: MANUAL DIFF FLAG NO
[2024-05-07 19:15] LABS: Basophils Percent Auto 0.2 % (0-2); Eosinophils Percent Auto 0.2 % (0-4); Imm Gran Abs Auto 0.06 X10*3/uL (0.00-0.03); Imm Gran Pct Auto 0.5 % (0.0-0.4); Lymphocytes Absolute Auto 2.4 X10*3/uL (1.2-4.9); Lymphocytes Percent Auto 18.3 % (20-40); Mean Corpuscular HGB Conc 27.6 g/dl (31.0-35.0); Mean Corpuscular Hemoglobin 18.1 pg (27.0-33.0); Mean Corpuscular Volume 65.5 fL (80.0-98.0); Mean Platelet Volume 9.9 fL (9.4-12.3); Monocytes Absolute Auto 0.5 X10*3/uL (0.1-1.2); Monocytes Percent Auto 4.2 % (2-11); Neutrophils Absolute Auto 9.9 x10*3/uL (2.0-8.3); Neutrophils Percent Auto 76.6 % (45-73); Platelet Count 411 X10*3/uL (160-400); Red Blood Count 4.43 X10*6/uL (4.20-5.50); Red Cell Distribution Width 20.9 % (11.0-16.0); White Blood Count 12.9 X10*3/uL (4.8-10.8)
[2024-05-07 19:37] LABS: Alanine Aminotransferase 16 U/L (0-31); Albumin Level 4.5 g/dL (3.5-5.0); Alkaline Phosphatase 91 U/L (39-117); Anion Gap 13 (12-20); Aspartate Amino Transferase 15 U/L (5-31); Bilirubin Direct 0.1 mg/dL (0.0-0.5); Bilirubin Total 0.4 mg/dL (0.0-1.0); Blood Urea Nitrogen 11 mg/dL (9-16); Calcium 8.9 mg/dL (8.4-10.2); Carbon Dioxide 21 mmol/L (22-29); Chloride 110 mmol/L (96-108); Creatinine Clr Calc Pharmacy 97.8; Estimated Glomerular Filt Rate > 60; Glucose Random 97 mg/dL (60-115); Potassium 3.7 mmol/L (3.3-5.1); Sodium 140 mmol/L (135-145)
[2024-05-07 19:39] LABS: Troponin-I High Sensitivity < 2.7 ng/L (<3.5-17.0)
[2024-05-07 20:05] VITALS: BP 112/45; PULSE 70; RESP 16; TEMP 37.2; O2SAT 100
[2024-05-07 20:22] LABS: Influenza A PCR NEGATIVE (Negative); Influenza B PCR NEGATIVE (Negative); Resp Syncy Virus RNA Qual PCR NEGATIVE (Negative); SARS COV2 PCR INHOUSE NEGATIVE (Negative)
[2024-05-07 20:26] LABS: TSH reflex Free T4 1.18 uIU/mL (0.32-4.0)
[2024-05-07 20:27] LABS: Appearance Urine Clear; Color Urine Yellow; Glucose Urine UA Negative (Negative); Leukocyte Esterase Urine Negative (Negative); Nitrite Urine Negative (Negative); PH 6.5 (5.0-9.0); Urine Blood Negative (Negative); Urine Ketones Negative (Negative); Urine Protein Negative (Neg-Trace)
[2024-05-07 20:29] LABS: Bacteria Urine None Seen (None Seen); Hyaline Casts Urine 0-2 /LPF (0-2); RBC Urine 0-2 /HPF (0-2); Squamous Epithelial Cell Urine 0-2 /HPF (0-2); WBC Urine 0-5 /HPF (0-5)
[2024-05-07 20:40] LABS: Amphetamine Screen Urine Not Detected (Not Detect); Barbiturates, Urine Not Detected (Not Detect); Benzodiazepines Screen Urine Not Detected (Not Detect); Buprenorphine Scr Not Detected (Not Detect); Cannabinoid Screen Urine POSITIVE (Not Detect); Cocaine Screen Urine Not Detected (Not Detect); Fentanyl, urine Not Detected (Not Detect); Methadone Screen, Urine Not Detected (Not Detect); Opiate Screen Urine Not Detected (Not Detect); Oxycodone Screen Urine Not Detected (Not Detect); Phencyclidine Screen Urine Not Detected (Not Detect)
[2024-05-07 22:46] VITALS: BP 109/48; PULSE 79; RESP 18; TEMP 37.1; O2SAT 100
[2024-05-07] MEDS: hydrOXYzine HCL 25 MG TABLET PO (22:57)
[2024-05-07 23:31] VITALS: BP 109/48; PULSE 79; RESP 18; TEMP 37.1; O2SAT 100
== END 2024-05-07 23:33 | disposition home or self-care (01) ==
PROVIDERS: Emergency Medicine; Physician Assistant Medical; Emergency Provider Emergency Medicine
DX: F41.9 Anxiety disorder, unspecified (principal); R42 Dizziness and giddiness; F41.0 Panic disorder [episodic paroxysmal anxiety]; R07.89 Other chest pain; R06.02 Shortness of breath; Z03.818 Encounter for observation for suspected exposure to other biological agents ruled out; Z51.81 Encounter for therapeutic drug level monitoring; Z79.899 Other long term (current) drug therapy
CPT/HCPCS: 0241U; 71046; 80048; 80076; 80307; 81001; 83735; 84443; 84484; 85025; 93005; 99283

== ENCOUNTER → 2024-05-07 18:42 | Outpatient (BNV) | payer MEDICAID, SELFPAY | PROVIDERS: Emergency Provider Emergency Medicine; Visit Provider Internal Medicine Cardiovascular Disease | DX: R42 Dizziness and giddiness (principal); R94.31 Abnormal electrocardiogram [ECG] [EKG] | CPT/HCPCS: 93010 ==

== ENCOUNTER → 2024-05-07 18:42 | Outpatient (BNV) | payer MEDICAID, SELFPAY | PROVIDERS: Visit Provider Radiology Diagnostic Radiology | DX: R07.89 Other chest pain (principal) | CPT/HCPCS: 71046 ==

== ENCOUNTER 2024-12-20 12:33 | Emergency (ER) | payer MEDICAID, SELFPAY ==
[2024-12-20 13:01] VITALS: BP 139/64; PULSE 99; RESP 16; TEMP 36.1; O2SAT 98; BMI 30.1
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
--- OUTSIDE RECORDS SUMMARY | 2024-12-20 13:56 | XMS_ITS | Clinical Summary ---
Author Organization [employer] Address [address] [place] [address] Care Team Providers Care Chief Dispatcher Name Role Phone Unavailable Primary Care Provider Unavailabl e Social History Tobacco Use Types Packs/Day Years Used Date Smoking Tobacco: Never Assessed Comments Unknown Sex and Gender Information Value Date Recorded Sex Assigned at Not on file Legal Sex Female 1:44 PM EST Gender Identity Not on file Sexual Orientation Not on file Plan of Treatment Health Maintenance Due Date Last Done Comments Depression Screening 1987 HIV Screening 1987 SDOH Screening 1987 Disability Screening 1987 Alcohol/Substance Use Screening 1999 Tobacco Screening 1999 Family Planning (PISQ) 11/03/2002 HPV Vaccines (1 - 3-dose series) 11/03/2002 Hepatitis C Screening 11/03/2005 DTaP/Tdap/Td Vaccines (1 - Tdap) 11/03/2006 Hepatitis B Vaccines (1 of 3 - 19+ 3-dose series) 11/03/2006 Pap Smear 11/03/2008 Cervical Cancer Screening 11/03/2017 HPV/Cotest 11/03/2017 COVID-19 Vaccine (1 - 4-2 5 season) 2024 Influenza Vaccine (#1) 2024 Zoster Vaccines (1 of 2) 11/03/2037 RSV Patients and Pa tients Aged 60 years or older (1 - 1-dose 75+ series) 11/03/2062 HIB Vaccines Aged Out No longer eligi ble based on patient's age to complete this topic Hepatitis A Vaccines Aged Out No long er eligible based on patient's age to complete this topic IPV Vaccines Aged Out No longer eligi ble based on patient's age to complete this topic Meningococcal B Vaccine Aged Out No l onger eligible based on patient's age to complete this topic Meningococcal Vaccine Aged Out No pardeep adela eligible based on patient's age to complete this topic Pneumococcal Vaccine: Pediat rics (0 to 5 Years) and At-Risk Patients (6 to 49) Years Aged Out No longer eligible b ased on patient's age to complete this topic RSV under 20 months Aged Out No longe r eligible based on patient's age to complete this topic Rotavirus Vaccines Aged Out No longer eligible based on patient's age to complete this topic
--- NOTE | 2024-12-20 14:28 | ECG_ITS ---
Test Reason : dizziness Blood Pressure : */* mmHG Vent. Rate : 73 BPM Atrial Rate : 73 BPM P-R Int : 142 ms QRS Dur : 72 ms QT Int : 388 ms P-R-T Axes : 61 49 46 degrees QTcB Int : 427 ms Normal sinus rhythm Normal ECG When compared with ECG of 07-May-2024 19:07, No significant change was found Referred By: Eliza Raygoza Electronically Signed By: YAMINI RITCHIE MD
[2024-12-20 15:21] LABS: MANUAL DIFF FLAG NO
[2024-12-20 15:23] LABS: Hematocrit 29.4 % (37.0-47.0); Hemoglobin 8.2 g/dl (12.0-16.0); Imm Gran Abs Auto 0.06 X10*3/uL (0.00-0.03); Imm Gran Pct Auto 0.5 % (0.0-0.4); Lymphocytes Absolute Auto 1.8 X10*3/uL (1.2-4.9); Mean Corpuscular HGB Conc 27.9 g/dl (31.0-35.0); Mean Corpuscular Hemoglobin 18.3 pg (27.0-33.0); Mean Corpuscular Volume 65.8 fL (80.0-98.0); NRBC Abs Auto 0.000 X10*3/uL (0.0-0.012); NRBC Pct Auto 0.0 /100WBC (0.0-0.2); Platelet Count 459 X10*3/uL (160-400); Red Blood Count 4.47 X10*6/uL (4.20-5.50); White Blood Count 13.1 X10*3/uL (4.8-10.8)
[2024-12-20 15:28] VITALS: BP 124/63; PULSE 77; RESP 18; O2SAT 100
[2024-12-20 15:44] LABS: Appearance Urine Turbid; Glucose Urine UA Negative (Negative); PH 5.5 (5.0-9.0); Specific Gravity - Urine 1.025 (1.005-1.025)
[2024-12-20 16:03] LABS: Alanine Aminotransferase 16 U/L (0-31); Albumin Level 5.0 g/dL (3.5-5.0); Anion Gap 14 (12-20); Aspartate Amino Transferase 24 U/L (5-31); Blood Urea Nitrogen 10 mg/dL (9-16); Calcium 9.3 mg/dL (8.4-10.2); Carbon Dioxide 21 mmol/L (22-29); Chloride 109 mmol/L (96-108); Creatinine Clr Calc Pharmacy 124.8; Estimated Glomerular Filt Rate > 60; Magnesium 2.1 mg/dL (1.6-2.6); Potassium 3.9 mmol/L (3.3-5.1); Sodium 140 mmol/L (135-145); Total Protein 7.9 g/dL (6.5-8.0)
[2024-12-20 16:35] LABS: Alkaline Phosphatase 84 U/L (39-117)
[2024-12-20 17:07] VITALS: BP 124/63; PULSE 77; RESP 18; TEMP -17.7; TEMP 0; O2SAT 100
== END 2024-12-20 17:08 | disposition home or self-care (01) ==
PROVIDERS: Physician Assistant Medical; Emergency Provider Emergency Medicine
DX: F41.9 Anxiety disorder, unspecified (principal); R42 Dizziness and giddiness; D50.9 Iron deficiency anemia, unspecified
CPT/HCPCS: 36415; 80048; 80076; 81003; 83735; 84443; 84702; 85025; 93005; 99283; 99284

== ENCOUNTER → 2024-12-20 14:28 | Outpatient (BNV) | payer MEDICAID, SELFPAY | PROVIDERS: Emergency Provider Emergency Medicine; Visit Provider Internal Medicine Cardiovascular Disease | DX: R42 Dizziness and giddiness (principal) | CPT/HCPCS: 93010 ==